=== PATIENT | female | born 1970 | race Caucasian/White ===

== ENCOUNTER 2018-01-17 15:37 | Emergency (ER) | payer MEDICAID ==
[~2018-01-17] VITALS: Ht 162.6 cm; Wt 80.0 kg
[2018-01-17 16:57] LABS: BASOPHILS % (AUTO) 1.1 % (0.0-2.0); HEMATOCRIT 39.3 % (36-46); HEMOGLOBIN 13.6 g/dL (12.0-16.0); LYMPHOCYTES # (AUTO) 2.1 K/uL (1.0-4.8); LYMPHOCYTES % (AUTO) 27.9 % (22.0-44.0); MEAN CORPUSCULAR HGB CONC 34.7 G/dL (31.0-37.0); MEAN CORPUSCULAR VOLUME 92 fL (80-100); MONOCYTES # (AUTO) 0.8 K/uL (0.1-1.0); MONOCYTES % (AUTO) 11.2 % (2.0-9.0); NEUTROPHILS # (AUTO) 4.2 K/uL (1.8-7.7); NEUTROPHILS % (AUTO) 56.8 % (40.0-70.0); PLATELET COUNT (AUTO) 493 K/uL (150-450); RED BLOOD CELL COUNT(AUTO) 4.26 MIL/uL (4.00-5.20)
[2018-01-17 17:06] LABS: ANION GAP 8 mmol/L (8-16); CALCIUM, TOTAL 8.7 mg/dL (8.8-10.5); CARBON DIOXIDE 27 mmol/L (22-29); CHLORIDE 103 mmol/L (98-107); CREATININE 0.83 mg/dL (0.60-1.30); GLOMERULAR FILTR. RATE CALC > 60 mL/min (>60); GLUCOSE,RANDOM 94 mg/dL (70-110); POTASSIUM 4.4 mmol/L (3.5-5.1); SODIUM SERUM 138 mmol/L (136-145); UREA NITROGEN, BLOOD 15 mg/dL (7-18)
[2018-01-17 17:12] LABS: ALANINE AMINOTRANSFERASE 33 U/L (12-78); ALBUMIN 4.3 g/dL (3.4-5.0); ALKALINE PHOSPHATASE 87 U/L (46-116); ASPARTATE AMINOTRANSFERASE 15 U/L (15-37); BILIRUBIN,TOTAL 0.3 mg/dL (0.1-1.0); TOTAL PROTEIN, SERUM 7.4 g/dL (6.4-8.2)
[2018-01-17 17:41] VITALS: BP 111/75
== END 2018-01-17 18:09 | disposition home or self-care (01) ==
LOC: EMS 15:38
DX: R03.0 Elevated blood-pressure reading, without diagnosis of hypertension (principal); F10.10 Alcohol abuse, uncomplicated; F41.9 Anxiety disorder, unspecified; F17.210 Nicotine dependence, cigarettes, uncomplicated
CPT/HCPCS: 99284

== ENCOUNTER 2018-01-18 09:02 | Emergency (ER) | payer MEDICAID ==
[~2018-01-18] VITALS: Ht 170.2 cm; Wt 68.2 kg
[2018-01-18] MEDS ORDERED: ChlordiazePOXIDE HCL 25 MG CAPSULE PO ONE (12:00)
[2018-01-18 12:36] VITALS: BP 118/72
== END 2018-01-18 12:59 | disposition home or self-care (01) ==
LOC: EMS 09:04
DX: F10.239 Alcohol dependence with withdrawal, unspecified (principal); F41.9 Anxiety disorder, unspecified; F17.210 Nicotine dependence, cigarettes, uncomplicated
CPT/HCPCS: 99283

== ENCOUNTER 2020-01-19 07:35 | Emergency (ER) | payer MEDICAID, OTHER ==
[~2020-01-19] VITALS: Ht 170.2 cm; Wt 75.0 kg
[2020-01-19 09:00] VITALS: BP 112/76
[2020-01-19] MEDS ORDERED: SULFAMETHOX/TRIMETH DS 800-160 MG/TABLET PO ONE (09:00)
[2020-01-19] MEDS ORDERED: DiphenhydrAMINE/ZINC ACET 30 GM CREAM TP ONE (09:00)
== END 2020-01-19 09:55 | disposition home or self-care (01) ==
LOC: EMS 07:36
DX: S90.562A Insect bite (nonvenomous), left ankle, initial encounter (principal); L08.9 Local infection of the skin and subcutaneous tissue, unspecified; F17.210 Nicotine dependence, cigarettes, uncomplicated; F41.9 Anxiety disorder, unspecified; Z88.6 Allergy status to analgesic agent; W57.XXXA Bitten or stung by nonvenomous insect and other nonvenomous arthropods, initial encounter; Y93.89 Activity, other specified; Y92.89 Other specified places as the place of occurrence of the external cause; Y99.8 Other external cause status
CPT/HCPCS: 99406